=== PATIENT | male | born 1975 | race Caucasian/White ===

== ENCOUNTER 2017-01-14 16:52 | Emergency (ER) | payer MEDICAID ==
[2017-01-14 20:40] VITALS: BP 106/60
== END 2017-01-14 20:40 | disposition home or self-care (01) ==
LOC: ED 16:52
DX: N39.0 Urinary tract infection, site not specified (principal); K21.9 Gastro-esophageal reflux disease without esophagitis
CPT/HCPCS: 82962; J0696; J1885

== ENCOUNTER 2018-03-18 10:57 | Emergency (ER) | payer MEDICAID ==
[~2018-03-18] VITALS: Ht 170.2 cm; Wt 84.4 kg
[2018-03-18 11:12] VITALS: Ht 170.2 cm; Wt 84.4 kg
[2018-03-18 12:37] VITALS: BP 121/77
== END 2018-03-18 12:37 | disposition home or self-care (01) ==
LOC: ED 10:57
DX: S83.92XA Sprain of unspecified site of left knee, initial encounter (principal); X50.1XXA Overexertion from prolonged static or awkward postures, initial encounter; Y93.66 Activity, soccer; Y92.89 Other specified places as the place of occurrence of the external cause; Y99.8 Other external cause status

== ENCOUNTER 2018-08-05 10:34 | Emergency (ER) | payer MEDICAID ==
[~2018-08-05] VITALS: Ht 172.7 cm; Wt 86.2 kg
[2018-08-05 10:40] VITALS: Ht 172.7 cm; Wt 86.2 kg
[2018-08-05 11:25] VITALS: BP 122/78
== END 2018-08-05 11:25 | disposition home or self-care (01) ==
LOC: ED 10:34
DX: S83.8X2A Sprain of other specified parts of left knee, initial encounter (principal); W01.0XXA Fall on same level from slipping, tripping and stumbling without subsequent striking against object, initial encounter; Y93.89 Activity, other specified; Y92.89 Other specified places as the place of occurrence of the external cause; Y99.8 Other external cause status

== ENCOUNTER 2019-11-07 16:22 | Emergency (ER) | payer MEDICAID ==
[~2019-11-07] VITALS: Ht 175.3 cm; Wt 90.3 kg
[2019-11-07 16:35] VITALS: Ht 175.3 cm; Wt 90.3 kg
[2019-11-07 19:02] LABS: BASOPHIL % 0.7 % (0-2); PLATELET COUNT 147 x10^3mcL (130-400); RED CELL DISTRIBUTION WIDTH 12.7 % (11.5-14.5)
[2019-11-07 19:19] LABS: CALCIUM 8.3 mg/dL (8.5-10.1); CARBON DIOXIDE 26.7 mmol/L (21-32); CHLORIDE SERUM 104 mmol/L (98-107); CREATININE SERUM 0.9 mg/dL (0.7-1.3); GFR1 > 60 mL/min; GLUCOSE SERUM 111 mg/dL (74-106); POTASSIUM SERUM 3.8 mmol/L (3.5-5.1); SODIUM SERUM 139 mmol/L (136-145)
[2019-11-07 19:24] LABS: ALBUMIN 3.7 g/dL (3.4-5.0); ALKALINE PHOSPHATASE 60 U/L (46-116); ALT/SGPT 42 U/L (16-63); AST/SGOT 23 U/L (15-37); BILIRUBIN TOTAL 0.4 mg/dL (0.20-1.00); CHOLESTEROL 139 mg/dL (<200); CHOLESTEROL/HDL RATIO 3.4; HDL CHOLESTEROL 41 mg/dL (40-60); TOTAL PROTEIN, SERUM 7.8 g/dL (6.4-8.2); TRIGLYCERIDES 43 mg/dL (<150)
[2019-11-07 19:51] LABS: microscopic required? YES; urine erythrocyte 1+ (NEGATIVE)
[2019-11-07 20:53] VITALS: BP 107/71
== END 2019-11-07 20:53 | disposition home or self-care (01) ==
LOC: ED 16:22
PROVIDERS: Specialist
DX: J10.1 Influenza due to other identified influenza virus with other respiratory manifestations (principal); R19.7 Diarrhea, unspecified; R11.10 Vomiting, unspecified
CPT/HCPCS: 87804; J1885; J2405